=== PATIENT | female | born 1975 | race Caucasian/White ===

== ENCOUNTER 2021-02-12 17:17 | Emergency (ER) | payer MEDICAID ==
[2021-02-12 17:43] VITALS: BP 122/61
[2021-02-12] MEDS ORDERED: predniSONE 20 MG TABLET PO STA (17:54)
--- NOTE | 2021-02-12 17:57 | ED Physician Documentation ---
History of Present Illness - Stated complaint Stated Complaint: WASP STING - Chief complaint Chief Complaint: Wound - History obtained from History obtained from: Patient - History of Present Illness Pain level max: 4 Pain level now: 2 - Additonal information Additional information: Patient is a 45-year-old female who presents to the emergency department stating that she was stung by a wasp in the left wrist yesterday. She has been scratching the area secondary to itching, now has increased swelling to the area. Concerned about potential infection. No fevers. No chills. Nothing makes it better or worse. Has not taken anything for this. Review of Systems Constitutional: denies: Fever Respiratory: denies: Dyspnea, Cough, Wheezing GI: denies: Vomiting, Constipation : denies: Now EGA Musculoskeletal: denies: Neck pain Neurologic: denies: Headache PD PAST MEDICAL HISTORY - Past Medical History Past Medical History: No - Past Surgical History Past Surgical History: No - Present Medications Home Medications: Ambulatory Orders Medication Instructions Recorded Confirmed predniSONE [Deltasone] 40 mg PO DAILY #10 tablet 02/12/21 - Allergies Allergies/Adverse Reactions: Allergies Allergy/AdvReac Type Severity Reaction Status Date / Time No Known Drug Allergies Allergy Verified 02/12/21 18:28 - Living Situation Living Arrangement: reports: At home - Family History Family history: reports: Non contributory PD ED PE NORMAL - Vitals Vital signs reviewed: Yes - General General: Alert and oriented X 3, No acute distress, Well developed/nourished - HEENT HEENT: PERRL, Moist mucous membranes - Neck Neck: Supple, no meningeal sign - Cardiac Cardiac: RRR, Strong equal pulses - Respiratory Respiratory: No respiratory distress, Clear bilaterally - Derm Derm: Warm and dry - Extremities Extremities: Other (Swelling to the volar aspect of the left forearm. Mild light pink erythema. No streaking. Blanches easily. Neurovascularly intact) - Neuro Neuro: Alert and oriented X 3 - Psych Psych: Normal mood, Normal affect Results - Vitals Vitals: Vital Signs - 24 hr 02/12/21 17:41 Temperature 36.9 C Heart Rate 71 Respiratory 16 Rate Blood Pressure 122/61 O2 Saturation 100 Oxygen O2 Source Room air PD MEDICAL DECISION MAKING - ED course Complexity details: considered differential, d/w patient ED course: Patient with what appears to be an allergic reaction to the left forearm. Does not appear consistent with infection/cellulitis at this time. We will place on steroids for home. The forearm is described as itchy, not painful. No fevers. Patient counseled regarding signs and symptoms for which I believe and urgent re-evaluation would be necessary. Patient with good understanding of and agreement to plan and is comfortable going home at this time This document was made in part using voice recognition software. While efforts are made to proofread this document, sound alike and grammatical errors may occur. Departure - Departure Disposition: 01 Home, Self Care Clinical Impression: Allergic reaction Qualifiers: Encounter type: initial encounter Qualified Code(s): T78.40XA - Allergy, unspecified, initial encounter Condition: Good Instructions: ED Bite Sting Insect Gen Allergic React Follow-Up: your,doctor as needed. [Other] Prescriptions: predniSONE [Deltasone] 40 mg PO DAILY #10 tablet Comments: Use the steroids as prescribed. You can also use Benadryl and/or Claritin and/or Zyrtec to help with itching. Return if you worsen. This should improve over the next 24 hours. Discharge Date/Time: 02/12/21 18:42
== END 2021-02-12 18:42 | disposition home or self-care (01) ==
LOC: ED 17:17
DX: T78.40XA Allergy, unspecified, initial encounter (principal); W57.XXXA Bitten or stung by nonvenomous insect and other nonvenomous arthropods, initial encounter
CPT/HCPCS: 99282; 99284; J7512